=== PATIENT | male | born 1985 | race African-American/Black ===

== ENCOUNTER 2017-10-17 14:27 | Inpatient (IN) | payer OTHER ==
[2017-10-17 16:04] VITALS: BMI 24.3
--- NOTE | 2017-10-17 18:25 | HP ---
Admission ROS [facility] - [facility] Chief Complaint: I WANT TO GO TO REHAB Allergies/Adverse Reactions: Allergies Allergy/AdvReac Type Severity Reaction Status Date / Time No Known Allergies Allergy Verified 10/17/17 17:43 History of Present Illness: 32 YEARS OLD MALE WITH LONG HISTORY OF PCP NICOTINE DEPENDENCE HAS BIPOLAR II IS ADMITTED TO REHAB Exam Limitations: No Limitations - Ebola screening Have you traveled outside of the country in the last 21 days: No Have you had contact with anyone from an Ebola affected area: No Have you been sick,other than usual withdrawal symptoms: No Do you have a fever: No - Review of Systems Constitutional: Weight Stable EENT: reports: Blurred Vision (EYE GLASSES AT HOME) Respiratory: reports: No Symptoms reported Cardiac: reports: No Symptoms Reported GI: reports: No Symptoms Reported : reports: No Symptoms Reported Musculoskeletal: reports: No Symptoms Reported Integumentary: reports: No Symptoms Reported Neuro: reports: No Symptoms reported Endocrine: reports: No Symptoms Reported Hematology: reports: No Symptoms Reported Psychiatric: reports: Judgement Intact, Orientated x3, Anxious, Depressed Other Systems: Reviewed and Negative Patient History - Patient Medical History Hx Anemia: No Hx Asthma: No Hx Chronic Obstructive Pulmonary Disease (COPD): No Hx Cancer: No Hx Cardiac Disorders: No Hx Congestive Heart Failure: No Hx Hypertension: No Hx Hypercholesterolemia: No Hx Pacemaker: No HX Cerebrovascular Accident: No Hx Seizures: No Hx Dementia: No Hx Diabetes: No Hx Gastrointestinal Disorders: No Hx Liver Disease: No Hx Genitourinary Disorders: No Hx Sexually Transmitted Disorders: No Hx Renal Disease (ESRD): No Hx Thyroid Disease: No Hx Human Immunodeficiency Virus (HIV): No Hx Hepatitis C: No Hx Depression: No Hx Suicide Attempt: No Hx Bipolar Disorder: Yes Hx Schizophrenia: No - Patient Surgical History Past Surgical History: No Hx Neurologic Surgery: No Other Surgical History: 2000 HEAD TRAUMA = OLFACTORY DEFICIT - PPD History Previous Implant?: Yes Documented Results: Negative w/o proof Implanted On Prior R Admission?: No PPD to be Administered?: Yes - Smoking Cessation Smoking history: Current every day smoker Have you smoked in the past 12 months: Yes Aproximately how many cigarettes per day: 10 Cigars Per Day: 0 Hx Chewing Tobacco Use: No Initiated information on smoking cessation: Yes 'Breaking Loose' booklet given: 10/17/17 - Substance & Tx. History Hx Alcohol Use: No Hx Substance Use: Yes Hx Substance Use Treatment: No ([facility]) - Substances Abused PCP Route: Smoking Frequency: 1-2 times per week Amount used: FEW PUFFS Age of first use: 17 Date of Last Use: 10/02/17 Family Disease History - Family Disease History Family Disease History: Heart Disease: Mother, Other: Father (NO CONTACT), Brother (NO CONTACT) Admission Physical Exam [facility] - Vital Signs Vital Signs: Vital Signs - 24 hr 10/17/17 16:03 Temperature 96.5 F L Pulse Rate 90 Respiratory 20 Rate Blood Pressure 131/75 - Physical General Appearance: Yes: No Apparent Distress, Nourished, Appropriately Dressed HEENTM: Yes: Hearing grossly Normal, Normal ENT Inspection, Normocephalic, Normal Voice Respiratory: Yes: Chest Non-Tender, Lungs Clear, Normal Breath Sounds, No Respiratory Distress, No Accessory Muscle Use Neck: Yes: Supple, Trachea in good position Breast: Yes: Breasts Symetrical Cardiology: Yes: Regular Rhythm, S1, S2, Tachycardia Abdominal: Yes: Normal Bowel Sounds, Non Tender, Soft Genitourinary: Yes: Within Normal Limits Back: Yes: Normal Inspection Musculoskeletal: Yes: full range of Motion, Gait Steady Extremities: Yes: Normal Inspection, Normal Range of Motion, Non-Tender Neurological: Yes: Fully Oriented, Alert, Motor Strength 5/5, Normal Mood/Affect , Normal Response Integumentary: Yes: Warm Lymphatic: Yes: Within Normal Limits - Diagnostic (1) PCP dependence Current Visit: Yes Status: Acute (2) Nicotine dependence Current Visit: Yes Status: Acute Qualifiers: Nicotine product type: cigarettes Substance use status: in withdrawal Qualified Code(s): F17.213 - Nicotine dependence, cigarettes, with withdrawal (3) Bipolar II disorder Current Visit: Yes Status: Suspected Cleared for Admission [facility] - Detox or Rehab [facility] Level of Care: Observation Bed Detox Regimen/Protocol: Not Applicable Claeared for Rehab Admission: Yes [facility] Breath Alcohol Content Breath Alcohol Content: 0 Urine Drug Screen - Results Drug Screen Negative: Yes Inpatient Rehab Admission - Initial Determination Are CD services needed?: Yes Free of communicable disease: Yes Not in need of hospitalization: Yes - Rehab Admission Criteria Previous failed treatment: Yes Poor recovery environment: Yes Comorbidities: Yes Lacks judgement: No Patient is meeting Inpatient Rehab admission criteria:: Yes
[2017-10-17] MEDS ORDERED: IBUPROFEN 400 MG TABLET (FP) PO PRN (18:32)
[2017-10-17] MEDS ORDERED: MAG HYDROX/AL HYDROX/SIMETH 30 ML UNIT-DOSE CUP PO PRN (18:32)
[2017-10-17] MEDS ORDERED: LOPERAMIDE HCL 2 MG CAPSULE PO PRN (18:32)
[2017-10-17] MEDS ORDERED: P-EPHED 60MG/TRIPROLIDI 2.5MG TABLET PO PRN (18:32)
[2017-10-17] MEDS ORDERED: ACETAMINOPHEN 325 MG TABLET (FP) PO PRN (18:32)
[2017-10-17] MEDS ORDERED: MAGNESIUM CITRATE 300 ML BOTTLE PO PRN (18:32)
[2017-10-17] MEDS ORDERED: guaiFENesin/D-METHORPHAN HB 10 ML UNIT-DOSE CUPS PO PRN (18:32)
[2017-10-17] MEDS ORDERED: NICOTINE POLACRILEX 2 MG GUM BC PRN (18:32)
[2017-10-17] MEDS ORDERED: MENTHOL/PHENOL 1 EACH UD MM PRN (18:32)
[2017-10-17] MEDS ORDERED: MAGNESIUM HYDROX 2400MG/30ML ORAL SUSPENSION 30 ML CUP PO PRN (18:32)
[2017-10-17] MEDS ORDERED: TUBERCULIN PPD 5 TU/0.1ML VIAL ID ONE (19:40)
[2017-10-17] MEDS: THIAMINE HCL 100 MG TABLET (FP) PO SCH (21:19)
[2017-10-18 02:41] LABS: URINE APPEARANCE CLEAR; URINE BILIRUBIN NEGATIVE (NEGATIVE); URINE BLOOD NEGATIVE (NEGATIVE); URINE COLOR STRAW; URINE GLUCOSE (UA) NEGATIVE (NEGATIVE); URINE KETONE NEGATIVE (NEGATIVE); URINE NITRITE NEGATIVE (NEGATIVE); URINE PROTEIN NEGATIVE (NEGATIVE); URINE UROBILINOGEN NEGATIVE mg/dL (0.2-1.0)
[2017-10-18] MEDS: PRENATAL VITAMINS W/ FOLIC ACID TABLET (FP) PO SCH (09:41)
[2017-10-18] MEDS: NICOTINE 14 MG/24 HOURS TOPICAL PATCH TD SCH (09:41)
[2017-10-18 10:09] LABS: URINE LEUK ESTERASE Negative (NEGATIVE)
--- NOTE | 2017-10-18 10:10 | EKG ---
Test Reason : Blood Pressure : / mmHG Vent. Rate : 086 BPM Atrial Rate : 086 BPM P-R Int : 118 ms QRS Dur : 098 ms QT Int : 360 ms P-R-T Axes : 075 094 052 degrees QTc Int : 430 ms NORMAL SINUS RHYTHM RIGHTWARD AXIS CANNOT RULE OUT INFERIOR INFARCT , AGE UNDETERMINED NO PREVIOUS ECGS AVAILABLE Confirmed by TRUE DICK MD ([id number]) on 10/18/2017 10:10:32 AM Referred By: ALTAGRACIA ESPOSITO Confirmed By:TRUE DICK MD
--- NOTE | 2017-10-18 11:06 | HP ---
Psychiatrist Admission - Data Date of interview: 10/18/17 [facility] Identifying data: This is the first 5N inpatient rehabilitation admission for this 32 year old single AA male unemployed and domiciled residing with his mother in [address] apartment. Medical History: Patient reports a good physical health. Smokes cigarettes 1/2 daily. Psychiatric History: Patient reports first psychiatric treatment while incarcerated in 2013, reports was diagnosed with Bipolar disorder, anxiety and depression. He started treatment with Risperdal and Vistaril, then was transferred to to other facility in [facility] and treated with Zoloft and Remeron. After release he continued his treatment attending [facility] and was put back on Risperdal 1 mg po bid and Vistarl 50 mg po bid. Denies history of psychiatric hospitalizations. Physical/Sexual Abuse/Trauma History: Denies history of sexual, physical and verbal abuse. Vital Signs: Vital Signs - 24 hr 10/17/17 10/18/17 10/18/17 16:03 00:37 03:30 Temperature 96.5 F L Pulse Rate 90 Respiratory 20 18 16 Rate Blood Pressure 131/75 10/18/17 06:32 Temperature 97.7 F Pulse Rate 90 Respiratory 18 Rate Blood Pressure 111/67 Allergies/Adverse Reactions: Allergies Allergy/AdvReac Type Severity Reaction Status Date / Time No Known Allergies Allergy Verified 10/17/17 17:43 Date of last physical exam: 10/17/17 Concur with the findings of this exam: Yes - Substance Abuse/Tx History Hx Alcohol Use: No Hx Substance Use: Yes (PCP ) Hx Substance Use Treatment: Yes ([facility]) Mental Status Exam - Mental Status Exam Alert and Oriented to: Time, Place, Person Cognitive Function: Grossly Intact Patient Appearance: Well Groomed Mood: Anxious Affect: Appropriate, Mood Congruent Patient Behavior: Appropriate, Cooperative Speech Pattern: Clear, Appropriate Voice Loudness: Normal Thought Process: Intact, Goal Oriented Thought Disorder: Not Present Hallucinations: Denies, Auditory (reports started to hear voices while in senior living, on and off) Suicidal Ideation: Denies Homicidal Ideation: Denies Insight/Judgement: Fair Sleep: Fair Appetite: Fair Muscle strength/Tone: Normal Gait/Station: Normal Psychiatric Findings - Problem List ([place] 1, 2,3) (1) Nicotine dependence Current Visit: Yes Status: Acute Qualifiers: Nicotine product type: cigarettes Substance use status: in withdrawal Qualified Code(s): F17.213 - Nicotine dependence, cigarettes, with withdrawal (2) PCP dependence Current Visit: Yes Status: Acute (3) Bipolar II disorder Current Visit: Yes Status: Suspected - Initial Treatment Plan Initial Treatment Plan: Will continue his current medications, monitor proress as neeed.
[2017-10-18] MEDS: risperiDONE 1 MG TABLET (FP) PO SCH ×2 (11:42→21:04)
[2017-10-18] MEDS: hydrOXYzine PAMOATE 50 MG CAPSULE (FP) PO SCH ×2 (11:42→21:04)
[2017-10-18 13:24] LABS: MCH 31.1 pg (25.7-33.7); MCHC 32.8 g/dl (32.0-35.9); MEAN PLT VOLUME 8.7 fl (7.5-11.1); PLATELET COUNT 234 K/MM3 (134-434); RDW 13.8 % (11.9-15.9)
[2017-10-18 13:38] LABS: ALBUMIN 4.4 g/dl (3.4-5.0); ANION GAP 8 (8-16); CALCIUM 9.5 mg/dL (8.5-10.1); CO2 30 mmol/L (21-32); GLUCOSE,RANDOM 94 mg/dL (74-106)
[2017-10-18 13:42] LABS: ALK PHOS 60 U/L (45-117); BILIRUBIN,TOTAL 0.6 mg/dL (0.2-1.0); CREATININE 0.8 mg/dL (0.7-1.3); SGOT/AST 15 U/L (15-37); SGPT/ALT 23 U/L (12-78); TOT PROT 7.8 g/dl (6.4-8.2)
[2017-10-18] MEDS: THIAMINE HCL 100 MG TABLET (FP) PO SCH (21:04)
[2017-10-19] MEDS: hydrOXYzine PAMOATE 50 MG CAPSULE (FP) PO SCH ×2 (09:39→21:04)
[2017-10-19] MEDS: PRENATAL VITAMINS W/ FOLIC ACID TABLET (FP) PO SCH (09:39)
[2017-10-19] MEDS: NICOTINE 14 MG/24 HOURS TOPICAL PATCH TD SCH (09:39)
[2017-10-19] MEDS: risperiDONE 1 MG TABLET (FP) PO SCH ×2 (09:39→21:04)
[2017-10-19] MEDS: THIAMINE HCL 100 MG TABLET (FP) PO SCH (21:04)
[2017-10-20] MEDS: PRENATAL VITAMINS W/ FOLIC ACID TABLET (FP) PO SCH (10:02)
[2017-10-20] MEDS: NICOTINE 14 MG/24 HOURS TOPICAL PATCH TD SCH (10:02)
[2017-10-20] MEDS: risperiDONE 1 MG TABLET (FP) PO SCH ×2 (10:02→21:08)
[2017-10-20] MEDS: hydrOXYzine PAMOATE 50 MG CAPSULE (FP) PO SCH ×2 (10:02→21:08)
[2017-10-20] MEDS: THIAMINE HCL 100 MG TABLET (FP) PO SCH (21:08)
[2017-10-21] MEDS: NICOTINE 14 MG/24 HOURS TOPICAL PATCH TD SCH (09:45)
[2017-10-21] MEDS: hydrOXYzine PAMOATE 50 MG CAPSULE (FP) PO SCH ×2 (09:45→21:02)
[2017-10-21] MEDS: PRENATAL VITAMINS W/ FOLIC ACID TABLET (FP) PO SCH (09:45)
[2017-10-21] MEDS: risperiDONE 1 MG TABLET (FP) PO SCH ×2 (09:45→21:02)
[2017-10-21] MEDS: THIAMINE HCL 100 MG TABLET (FP) PO SCH (21:02)
[2017-10-22] MEDS: PRENATAL VITAMINS W/ FOLIC ACID TABLET (FP) PO SCH (09:59)
[2017-10-22] MEDS: hydrOXYzine PAMOATE 50 MG CAPSULE (FP) PO SCH ×2 (09:59→21:06)
[2017-10-22] MEDS: NICOTINE 14 MG/24 HOURS TOPICAL PATCH TD SCH (09:59)
[2017-10-22] MEDS: risperiDONE 1 MG TABLET (FP) PO SCH ×2 (09:59→21:06)
[2017-10-22] MEDS: THIAMINE HCL 100 MG TABLET (FP) PO SCH (21:06)
[2017-10-23] MEDS: NICOTINE 14 MG/24 HOURS TOPICAL PATCH TD SCH (09:50)
[2017-10-23] MEDS: hydrOXYzine PAMOATE 50 MG CAPSULE (FP) PO SCH ×2 (09:51→21:16)
[2017-10-23] MEDS: risperiDONE 1 MG TABLET (FP) PO SCH ×2 (09:51→21:16)
[2017-10-23] MEDS: PRENATAL VITAMINS W/ FOLIC ACID TABLET (FP) PO SCH (09:51)
[2017-10-23] MEDS: THIAMINE HCL 100 MG TABLET (FP) PO SCH (21:16)
[2017-10-24] MEDS: hydrOXYzine PAMOATE 50 MG CAPSULE (FP) PO SCH ×2 (09:59→21:35)
[2017-10-24] MEDS: NICOTINE 14 MG/24 HOURS TOPICAL PATCH TD SCH (09:59)
[2017-10-24] MEDS: PRENATAL VITAMINS W/ FOLIC ACID TABLET (FP) PO SCH (09:59)
[2017-10-24] MEDS: risperiDONE 1 MG TABLET (FP) PO SCH ×2 (09:59→21:35)
[2017-10-24] MEDS: THIAMINE HCL 100 MG TABLET (FP) PO SCH (21:35)
[2017-10-25] MEDS: hydrOXYzine PAMOATE 50 MG CAPSULE (FP) PO SCH ×2 (09:36→21:06)
[2017-10-25] MEDS: NICOTINE 14 MG/24 HOURS TOPICAL PATCH TD SCH (09:36)
[2017-10-25] MEDS: PRENATAL VITAMINS W/ FOLIC ACID TABLET (FP) PO SCH (09:36)
[2017-10-25] MEDS: risperiDONE 1 MG TABLET (FP) PO SCH ×2 (09:37→21:06)
[2017-10-25] MEDS: THIAMINE HCL 100 MG TABLET (FP) PO SCH (21:06)
[2017-10-26] MEDS: hydrOXYzine PAMOATE 50 MG CAPSULE (FP) PO SCH ×2 (09:41→21:07)
[2017-10-26] MEDS: NICOTINE 14 MG/24 HOURS TOPICAL PATCH TD SCH (09:41)
[2017-10-26] MEDS: risperiDONE 1 MG TABLET (FP) PO SCH ×2 (09:41→21:07)
[2017-10-26] MEDS: PRENATAL VITAMINS W/ FOLIC ACID TABLET (FP) PO SCH (09:41)
[2017-10-26] MEDS: THIAMINE HCL 100 MG TABLET (FP) PO SCH (21:06)
[2017-10-27] MEDS: hydrOXYzine PAMOATE 50 MG CAPSULE (FP) PO SCH ×2 (09:50→21:05)
[2017-10-27] MEDS: risperiDONE 1 MG TABLET (FP) PO SCH ×2 (09:50→21:05)
[2017-10-27] MEDS: NICOTINE 14 MG/24 HOURS TOPICAL PATCH TD SCH (09:50)
[2017-10-27] MEDS: PRENATAL VITAMINS W/ FOLIC ACID TABLET (FP) PO SCH (09:50)
[2017-10-27] MEDS: THIAMINE HCL 100 MG TABLET (FP) PO SCH (21:05)
[2017-10-28] MEDS: risperiDONE 1 MG TABLET (FP) PO SCH ×2 (09:50→21:11)
[2017-10-28] MEDS: NICOTINE 14 MG/24 HOURS TOPICAL PATCH TD SCH (09:50)
[2017-10-28] MEDS: hydrOXYzine PAMOATE 50 MG CAPSULE (FP) PO SCH ×2 (09:50→21:11)
[2017-10-28] MEDS: PRENATAL VITAMINS W/ FOLIC ACID TABLET (FP) PO SCH (09:50)
[2017-10-28] MEDS: THIAMINE HCL 100 MG TABLET (FP) PO SCH (21:11)
[2017-10-29] MEDS: risperiDONE 1 MG TABLET (FP) PO SCH ×2 (09:52→21:23)
[2017-10-29] MEDS: hydrOXYzine PAMOATE 50 MG CAPSULE (FP) PO SCH ×2 (09:52→21:23)
[2017-10-29] MEDS: PRENATAL VITAMINS W/ FOLIC ACID TABLET (FP) PO SCH (09:52)
[2017-10-29] MEDS: NICOTINE 14 MG/24 HOURS TOPICAL PATCH TD SCH (09:53)
[2017-10-29] MEDS: THIAMINE HCL 100 MG TABLET (FP) PO SCH (21:23)
[2017-10-30 06:33] VITALS: BP 104/58; PULSE 89; TEMP 97.9
[2017-10-30] MEDS: PRENATAL VITAMINS W/ FOLIC ACID TABLET (FP) PO SCH (09:47)
[2017-10-30] MEDS: hydrOXYzine PAMOATE 50 MG CAPSULE (FP) PO SCH (09:48)
[2017-10-30] MEDS: risperiDONE 1 MG TABLET (FP) PO SCH (09:48)
[2017-10-30] MEDS: NICOTINE 14 MG/24 HOURS TOPICAL PATCH TD SCH (09:48)
--- NOTE | 2017-10-30 09:58 | PN ---
Psychiatric Progress Note Vital Signs: Vital Signs Period Temp Pulse Resp BP Sys/Davies Pulse Ox Last 24 Hr 97.9 F 89 18-18 104/58 Date of Session: 10/30/17 Chief Complaint:: discharge visit HPI: Patient has addressed PCP, nicotine dependence comorbid Bipolar II disorder. ROS: WNL Current Medications: Active Medications Generic Name Dose Route Start Last Admin Trade Name Freq PRN Reason Stop Dose Admin Acetaminophen 650 mg 10/17/17 18:32 Tylenol - PO Q4H PRN PAIN Al Hydroxide/Mg Hydroxide 30 ml 10/17/17 18:32 Mylanta Oral Suspension - PO Q6H PRN DYSPEPSIA Eucalyptus/Menthol/Phenol/Sorbitol 1 each 10/17/17 18:32 Cepastat Lozenge - MM Q4H PRN SORE THROAT Guaifenesin 10 ml 10/17/17 18:32 Robitussin Dm - PO Q6H PRN COUGH Hydroxyzine Pamoate 50 mg 10/18/17 11:30 10/30/17 09:48 Vistaril - PO 50 mg BID LIZETTE Administration Ibuprofen 400 mg 10/17/17 18:32 Motrin - PO Q6H PRN SEVERE PAIN Loperamide HCl 4 mg 10/17/17 18:32 Imodium - PO Q6H PRN DIARRHEA Magnesium Citrate 300 ml 10/17/17 18:32 Citroma - PO Q48H PRN CONSTIPATION Magnesium Hydroxide 30 ml 10/17/17 18:32 Milk Of Magnesia - PO DAILY PRN CONSTIPATION Nicotine 14 mg 10/18/17 10:00 10/30/17 09:48 Nicoderm Patch - TD Not Given DAILY LIZETTE Nicotine Polacrilex 2 mg 10/17/17 18:32 10/19/17 09:41 Nicorette Gum - BC 2 mg Q2H PRN Administration NICOTINE REPLACEMENT RX Multivit/Folic Acid/Iron 1 tab 10/18/17 10:00 10/30/17 09:47 Vitamins (Sjr) - PO 1 tab DAILY LIZETTE Administration Pseudoephedrine/Triprolidine 1 combo 10/17/17 18:32 Actifed - PO TID PRN NASAL CONGESTION Risperidone 1 mg 10/18/17 11:30 10/30/17 09:48 Risperdal - PO 1 mg BID LIZETTE Administration Thiamine HCl 100 mg 10/17/17 22:00 10/29/17 21:23 Vitamin B1 - PO 100 mg HS LIZETTE Administration Current Side Effect: No Lab tests ordered: No Lab tests reviewed: Yes Provider note:: Patient has completed today his treatment and met his goals, will continue to address his issues at [facility] outpatient program. Patient gained insights into his addiction and motivated to continue maintain abstinence. Patient was able to identify his relaspe triggers, leared copy skills through this treatment, he was encouraged to utilaze all supports available to prevent relapses. Risperdal well tolerated, patient continues to finding that medications is effective, scripst ptovided for 30 days supply to his pharmacy, patient is stable for discharge. Total face to face time:: 30 Mental Status Exam - Mental Status Exam Alert and Oriented to: Time, Place, Person Cognitive Function: Good Patient Appearance: Well Groomed Mood: Hopeful Affect: Appropriate, Mood Congruent Patient Behavior: Appropriate, Cooperative Speech Pattern: Clear, Appropriate Voice Loudness: Normal Thought Process: Intact Thought Disorder: Not Present Hallucinations: Denies Suicidal Ideation: Denies Homicidal Ideation: Denies Insight/Judgement: Fair Sleep: Fair Appetite: Fair Muscle strength/Tone: Normal Gait/Station: Normal Psychiatric Treatment Plan - Problem List (1) Nicotine dependence Current Visit: Yes Qualifiers: Nicotine product type: cigarettes Substance use status: in withdrawal Qualified Code(s): F17.213 - Nicotine dependence, cigarettes, with withdrawal (2) PCP dependence Current Visit: Yes (3) Bipolar II disorder Current Visit: Yes
== END 2017-10-30 10:30 | disposition home or self-care (01) | DRG 772 ==
LOC: YASAS 14:27 → Y5N 18:09
PROVIDERS: ADMIT Psychiatry & Neurology Psychiatry; ATTEND Psychiatry & Neurology Psychiatry
PROC: HZ42ZZZ Group Counseling for Substance Abuse Treatment, Cognitive-Behavioral (ICD-10-PCS; principal; 2017-10-17)
DX: F16.20 Hallucinogen dependence, uncomplicated (principal); F17.213 Nicotine dependence, cigarettes, with withdrawal; F31.81 Bipolar II disorder
CPT/HCPCS: 36415; 80053; 81003; 85027; 86593; 86803; 93005; 93010; J2794